=== PATIENT | male | born 1955 | race Hispanic/Latino ===

== ENCOUNTER 2017-11-13 09:39 | Outpatient (CLI) | payer BC ==
--- NOTE | 2017-11-13 11:41 | ULT ---
ULTRASOUND TESTICULAR WITH DOPPLER: HISTORY: M50.9, testicular mass. COMPARISON: None. FINDINGS: Real-time, veloz scale, and color evaluation with spectral analysis of the testicles was performed. T he right testicle measures 3.7 x 2.2 x 2.7 cm and the left testicle measures 3 x 2.8 x 2.2 cm. Large left epididymal head cyst is present measuring up to 4.3 cm. The testicular echotexture and vascularity is normal bilaterally. IMPRESSION: 1. Normal examination of the testicles. 2. Large left epididymal head cyst. POS: [facility]
== END 2017-11-13 09:40 | disposition home or self-care (01) ==
LOC: NAV ULT 09:39
PROVIDERS: ATTEND Nurse Practitioner Family
DX: N50.9 Disorder of male genital organs, unspecified (principal); N50.3 Cyst of epididymis
CPT/HCPCS: 76870; 93976